=== PATIENT | female | born 1980 | race Caucasian/White ===

== ENCOUNTER 2018-02-17 13:10 | Emergency (ER) | payer BC ==
[~2018-02-17] VITALS: Ht 162.6 cm; Wt 74.4 kg
[2018-02-17 14:49] VITALS: BP 119/81
== END 2018-02-17 14:50 | disposition home or self-care (01) ==
LOC: ER 13:10
DX: I80.02 Phlebitis and thrombophlebitis of superficial vessels of left lower extremity (principal)

== ENCOUNTER → 2020-12-02 | Outpatient (CLI) | payer BC, OTHER | LOC: SJCVCIMAG 08:47 | PROVIDERS: ATTEND Internal Medicine | DX: R00.2 Palpitations (principal); E78.5 Hyperlipidemia, unspecified ==